=== PATIENT | male | born 1990 | race African-American/Black ===

== ENCOUNTER 2019-01-01 21:36 | Emergency (ER) | payer OTHER ==
[~2019-01-01] VITALS: Ht 190.5 cm; Wt 86.2 kg
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
[2019-01-01 22:06] VITALS: BP 126/62
[2019-01-01] MEDS ORDERED: IBUPROFEN600 MG ORAL (22:34)
[2019-01-01 22:40] VITALS: BP 126/62
--- NOTE | 2019-01-01 22:40 | NUR ---
ER DISCHARGE NOTE: Patient is cleared to be discharged per ERMD, pt is aox4, on room air, with stable vital signs. pt was given dc and prescription instructions, pt was able to verbalize understanding, pt id band removed. pt is able to ambulate with steady gait. pt took all belongings.
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
== END 2019-01-01 22:40 | disposition home or self-care (01) ==
LOC: EMR 21:49
DX: R07.89 Other chest pain (principal); J06.9 Acute upper respiratory infection, unspecified
CPT/HCPCS: 71046; Z7502; 99283